=== PATIENT | female | born 1995 | race Caucasian/White ===

== ENCOUNTER → 2023-12-12 07:05 | Outpatient (REF) | payer OTHER, SELFPAY | LOC: PNTC 07:05 | PROVIDERS: ATTENDING PHYSICIAN Obstetrics & Gynecology | DX: Z34.02 Encounter for supervision of normal first pregnancy, second trimester (principal) | CPT/HCPCS: 76805 ==

== ENCOUNTER 2024-03-18 12:05 | Observation (INO) | payer OTHER, SELFPAY ==
[2024-03-18 12:34] VITALS: BP 115/51; BMI 28.9
[2024-03-18 12:40] LABS: % Basophils 0.3 % (0-2); % Eosinophils 0.7 % (0-6); % Lymphocytes 11.5 % (20.5-51.1); % Monocytes 9.6 % (1.7-9.3); % Neutrophils 76.9 % (42.2-75.2); Absolute Basophils 0.1 10^3/uL (0-0.2); Absolute Eosinophils 0.1 10^3/uL (0-0.7); Absolute Immature Granulocytes 0.2 10^3/uL (0-0.05); Absolute Lymphocytes 1.7 10^3/uL (1.2-3.4); Absolute Monocytes 1.5 10^3/uL (0.1-0.6); Absolute Neutrophils 11.6 10^3/uL (1.4-6.5); Hematocrit 37.1 % (37.0-47.0); Hemoglobin 12.2 g/dL (12.0-16.0); Mean Corp Hgb Conc. 32.9 g/dL (33.0-37.0); Mean Corpuscular Hgb 29.6 pg (27.0-31.0); Mean Platelet Volume 9.5 fL (7.4-10.4); Nucleated Red Blood Cells % 0 %; Platelet Count 230 10^3/uL (130-400); Red Blood Cell Count 4.12 10^6/uL (4.20-5.40); Red Cell Dist. Width 12.3 % (11.5-14.5); White Blood Cell Count 15.1 10^3/uL (4.8-10.8)
[2024-03-18 13:29] LABS: ALT (SGPT) 23 U/L (0-35); AST (SGOT) 29 U/L (14-36); Albumin 3.3 g/dl (3.5-5.0); Alkaline Phosphatase 107 U/L (38-126); Blood Urea Nitrogen 4 mg/dl (7-17); Calcium 8.7 mg/dl (8.4-10.2); Carbon Dioxide 21 mmol/L (22-30); Chloride 105 mmol/L (98-107); Estimated Creatinine Clearance > 125 ml/min; Glucose 80 mg/dl (70-99); Protein/creatinine Ratio 0.2; Sodium 134 mmol/L (135-145); Total Bilirubin 0.5 mg/dl (0.2-1.3); Total Protein 6.1 g/dl (6.3-8.2); Urine Protein 8 mg/dl; eGFR > 60.00
[2024-03-18] MEDS: TYLENOL #3 1 TABLET PO (14:30)
== END 2024-03-18 16:08 | disposition home or self-care (01) ==
LOC: LDRP 12:05
PROVIDERS: ADMITTING PHYSICIAN Obstetrics & Gynecology; ATTENDING PHYSICIAN Obstetrics & Gynecology
DX: R51.9 Headache, unspecified (principal); Z34.03 Encounter for supervision of normal first pregnancy, third trimester; Z3A.34 34 weeks gestation of pregnancy
CPT/HCPCS: 59025; 80053; 82570; 84156; 85025; G0378

== ENCOUNTER 2024-05-02 09:13 | Observation (INO) | payer OTHER, SELFPAY ==
[2024-05-02 09:24] VITALS: BP 110/67; BMI 30.7
== END 2024-05-02 11:00 | disposition home or self-care (01) ==
LOC: LDRP 09:13
PROVIDERS: ADMITTING PHYSICIAN Student in an Organized Health Care Education/Training Program
DX: Z03.79 Encounter for other suspected maternal and fetal conditions ruled out (principal); O48.0 Post-term pregnancy; O98.313 Other infections with a predominantly sexual mode of transmission complicating pregnancy, third trimester; A60.09 Herpesviral infection of other urogenital tract; Z3A.40 40 weeks gestation of pregnancy
CPT/HCPCS: 36415; 86850; 86900; 86901

== ENCOUNTER 2024-05-03 06:19 | Inpatient (IN) | payer OTHER, SELFPAY ==
[2024-05-03 06:23] VITALS: BMI 30.7
[2024-05-03 06:30] VITALS: BP 119/69
[2024-05-03 07:07] LABS: % Basophils 0.2 % (0-2); % Eosinophils 0.3 % (0-6); % Immature Granulocytes 0.6 % (0-0.5); % Lymphocytes 10.4 % (20.5-51.1); % Monocytes 8.2 % (1.7-9.3); % Neutrophils 80.3 % (42.2-75.2); Absolute Eosinophils 0.1 10^3/uL (0-0.7); Absolute Immature Granulocytes 0.1 10^3/uL (0-0.05); Absolute Lymphocytes 2.1 10^3/uL (1.2-3.4); Absolute Monocytes 1.7 10^3/uL (0.1-0.6); Absolute Neutrophils 16.2 10^3/uL (1.4-6.5); Hematocrit 35.8 % (37.0-47.0); Hemoglobin 12.3 g/dL (12.0-16.0); Mean Corp Hgb Conc. 34.4 g/dL (33.0-37.0); Mean Corpuscular Volume 87.3 fL (81.0-99.0); Mean Platelet Volume 10.1 fL (7.4-10.4); Nucleated Red Blood Cells % 0 %; Platelet Count 261 10^3/uL (130-400); Red Cell Dist. Width 13.5 % (11.5-14.5); White Blood Cell Count 20.2 10^3/uL (4.8-10.8)
[2024-05-03] MEDS: FENTANYL/BUPIVACAINE 100 EPIDURAL ×2 (10:12→18:06)
[2024-05-03] MEDS: SUBLIMAZE 100 MCG EPIDURAL (10:12)
[2024-05-03] MEDS: PITOCIN 30 UNITS/NSS 500 ML IV (12:49)
[2024-05-04] MEDS: FENTANYL/BUPIVACAINE 100 EPIDURAL (01:54)
[2024-05-04] MEDS: PITOCIN 30 UNITS/NSS 500 ML IV (04:31)
[2024-05-04] MEDS: MOTRIN 600 MG PO ×3 (05:30→20:28)
[2024-05-04] MEDS: SENOKOT-S 1 TABLET PO (14:29)
[2024-05-05 04:28] LABS: Hematocrit 29.8 % (37.0-47.0); Hemoglobin 9.9 g/dL (12.0-16.0)
[2024-05-05] MEDS: MOTRIN 600 MG PO ×2 (08:27→19:43)
[2024-05-05] MEDS: SENOKOT-S 1 TABLET PO (08:28)
[2024-05-05] MEDS: FEOSOL 325 MG PO (09:22)
[2024-05-05 15:16] LABS: Syphilis/T. pallidum Ab Reflex Negative (Negative)
--- NOTE | 2024-05-06 07:56 | W.DS.TRANS ---
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
-
Discharge Instructions:
Discharge Diagnosis/Procedures delivered vaginally; labor, epidural,
spotnaneous vaginal delivery, repair 2nd degree
laceration
Diet Regular
Activity No restrictions
Driving Restrictions As prior to admission
Bathing Restrictions OK to Shower
Instructions:
Stand-Alone Forms: LDRP Vaginal Delivery
Changes to Home Medications: No
Discharge Medications:
DC Medications w/original date entered in [facility]
prenat.vits,alfredo,gcq-kcmi-hkqof 1 tab DAILY Supplement 03/18/24
acetaminophen 325 mg tablet 650 mg (2 x 325 mg) PO Q4HPRN PRN mild pain #0 tabs 05/05/24
ferrous sulfate 325 mg (65 mg iron) tablet (FeroSul) 325 mg PO DAILY #0 tabs 05/05/24
ibuprofen 600 mg tablet 600 mg PO Q6HPRN PRN moderate pain/cramps #0 tabs 05/05/24
Home Medication Changes
Pending Results: No
Total time spent discharging patient (in min): 20
[2024-05-06] MEDS: SENOKOT-S 1 TABLET PO (08:08)
[2024-05-06] MEDS: FEOSOL 325 MG PO (08:08)
== END 2024-05-06 12:16 | disposition home or self-care (01) | DRG 806 ==
LOC: LDRP 06:19
PROVIDERS: ADMITTING PHYSICIAN Student in an Organized Health Care Education/Training Program
PROC: 10H07YZ Insertion of Other Device into Products of Conception, Via Natural or Artificial Opening (ICD-10-PCS; 2024-05-03)
PROC: 10907ZC Drainage of Amniotic Fluid, Therapeutic from Products of Conception, Via Natural or Artificial Opening (ICD-10-PCS; 2024-05-03)
PROC: 10E0XZZ Delivery of Products of Conception, External Approach (ICD-10-PCS; 2024-05-04)
PROC: 0KQM0ZZ Repair Perineum Muscle, Open Approach (ICD-10-PCS; 2024-05-04)
DX: O48.0 Post-term pregnancy (principal); O98.32 Other infections with a predominantly sexual mode of transmission complicating childbirth; Z37.0 Single live birth; Z3A.40 40 weeks gestation of pregnancy; O76 Abnormality in fetal heart rate and rhythm complicating labor and delivery; O70.1 Second degree perineal laceration during delivery; A60.09 Herpesviral infection of other urogenital tract
CPT/HCPCS: 85014; 85018; 85025; 86780; 86850; 86900; 86901